=== PATIENT | female | born 1955 | race Caucasian/White ===

== ENCOUNTER 2025-09-10 11:54 | Inpatient (IN) | payer OTHER ==
[~2025-09-10] VITALS: Ht 154.9 cm; Wt 80.9 kg
[2025-09-10] MEDS ORDERED: LISI-894 PO (12:06)
[2025-09-10] MEDS ORDERED: HYDR25TA2 PO (12:06)
[2025-09-10] MEDS ORDERED: METF-1211 PO (12:06)
[2025-09-10] MEDS ORDERED: ATOR40TA28 PO (12:06)
[2025-09-10] MEDS ORDERED: LEVO100 PO (12:06)
[2025-09-10] MEDS ORDERED: SPIR-37 PO (12:06)
[2025-09-10] MEDS ORDERED: GABA-1181 PO (12:06)
[2025-09-10] MEDS ORDERED: AMLO-258 PO (12:06)
[2025-09-10 12:26] LABS: PLATELET COUNT (AUTO) 206 K/uL (150-450); RED BLOOD CELL COUNT(AUTO) 3.53 MIL/uL (4.00-5.20); RED CELL DISTRIBUTION WIDTH 13.8 % (11.5-14.5); WHITE BLOOD COUNT (AUTO) 8.4 K/uL (4.5-11.0)
[2025-09-10 12:42] LABS: CALCIUM, TOTAL 8.8 mg/dL (8.8-10.5); CREATININE 0.87 mg/dL (0.60-1.30); GLOMERULAR FILTR. RATE CALC > 60 mL/min (>60); GLUCOSE,RANDOM 88 mg/dL (70-110); SODIUM SERUM 137 mmol/L (136-145); UREA NITROGEN, BLOOD 29 mg/dL (7-18)
[2025-09-10] MEDS: SODIUM POLYSTYRENE SULFONATE 15 GM/60 ML SUSPENSION BOTTLE PO ONE (15:00)
[2025-09-10] MEDS: SODIUM CHLORIDE 0.9% 1,000 ML IV ONE (15:52)
[2025-09-10 16:00] LABS: APPEARANCE,URINE CLEAR (CLEAR); GLUCOSE, URINE (UA) NEGATIVE (NEGATIVE); LEUKOCYTE ESTERASE ,URINE NEGATIVE (NEGATIVE); NITRATE,URINE NEGATIVE (NEGATIVE); OCCULT BLOOD,URINE NEGATIVE (NEGATIVE); SPECIFIC GRAVITIY, URINE 1.018 (1.003-1.030)
[2025-09-10] MEDS ORDERED: ACETAMINOPHEN 325 MG TABLET PO PRN (17:30)
[2025-09-10] MEDS ORDERED: ONDANSETRON HCL 4 MG/2 ML VIAL IVP PRN (17:30)
[2025-09-10 18:21] LABS: LACTIC ACID 0.8 mmol/L (0.4-2.0)
[2025-09-10 22:00] VITALS: BP 120/56; PULSE 84; RESP 18; TEMP 97.2; O2SAT 98
[2025-09-10] MEDS: HEPARIN SODIUM,PORCINE 5,000 UNITS/ML VIAL SQ SCH (23:47)
[2025-09-11] VITALS: BP 116/50; PULSE 80; RESP 18; TEMP 98.2; O2SAT 98
[2025-09-11 04:00] VITALS: BP 111/56; PULSE 76; RESP 18; TEMP 97.9; O2SAT 98
[2025-09-11 06:43] LABS: PLATELET COUNT (AUTO) 167 K/uL (150-450); RED BLOOD CELL COUNT(AUTO) 3.14 MIL/uL (4.00-5.20); RED CELL DISTRIBUTION WIDTH 13.5 % (11.5-14.5); WHITE BLOOD COUNT (AUTO) 5.9 K/uL (4.5-11.0)
[2025-09-11 06:55] LABS: CALCIUM, TOTAL 8.2 mg/dL (8.8-10.5); CREATININE 0.82 mg/dL (0.60-1.30); GLOMERULAR FILTR. RATE CALC > 60 mL/min (>60); GLUCOSE,RANDOM 92 mg/dL (70-110); SODIUM SERUM 139 mmol/L (136-145); UREA NITROGEN, BLOOD 24 mg/dL (7-18)
[2025-09-11 08:15] VITALS: BP 108/64; PULSE 78; RESP 18; TEMP 98; O2SAT 99
[2025-09-11 11:29] VITALS: BP 133/52; PULSE 82; RESP 17; TEMP 98.1; O2SAT 98
== END 2025-09-11 14:35 | disposition home or self-care (01) | DRG 425 ==
LOC: EMS 11:59 → EDH 16:51 → 5S 21:33
PROVIDERS: ADMIT Internal Medicine; ATTEND Internal Medicine
DX: E87.5 Hyperkalemia (principal); E87.21 Acute metabolic acidosis; I10 Essential (primary) hypertension; E11.9 Type 2 diabetes mellitus without complications; E03.9 Hypothyroidism, unspecified; E78.00 Pure hypercholesterolemia, unspecified; N28.9 Disorder of kidney and ureter, unspecified; Z79.899 Other long term (current) drug therapy
CPT/HCPCS: 80048; 81003; 83605; 83735; 85025; 93005; 96360; 99285; J1644; 36415-L1; 36415-TC